=== PATIENT | female | born 2005 | race Hispanic/Latino ===

== ENCOUNTER 2023-02-15 13:42 | Outpatient (CLI) | payer OTHER | END 2023-02-15 13:43 | disposition home or self-care (01) | LOC: DTY/OP 13:42 | PROVIDERS: ATTEND Student in an Organized Health Care Education/Training Program | DX: Z34.91 Encounter for supervision of normal pregnancy, unspecified, first trimester (principal); Z3A.11 11 weeks gestation of pregnancy | CPT/HCPCS: 97802 ==